=== PATIENT | male | born 2000 | race Asian ===

== ENCOUNTER 2019-01-05 18:49 | Emergency (ER) | payer MEDICAID ==
[~2019-01-05] VITALS: Ht 180.3 cm; Wt 64.9 kg
[2019-01-05] MEDS ORDERED: KETO10 PO (19:14)
== END 2019-01-05 19:29 | disposition home or self-care (01) ==
LOC: ER 18:49
DX: R68.84 Jaw pain (principal)
CPT/HCPCS: 99282